=== PATIENT | male | born 1995 | race Caucasian/White ===

== ENCOUNTER 2020-12-16 18:05 | Emergency (ER) | payer OTHER, SELFPAY ==
--- NOTE | 2020-12-16 21:39 | ER ---
Nurse's Notes [facility] Name: Jerry Jamison Age: 25 yrs Sex: Male : 1995 Arrival Date: 12/16/2020 Time: 18:07 Bed 21 Private MD: Diagnosis: SARS-associated coronavirus as the cause of diseases classified elsewhere Presentation: 12/16 19:51 Acuity: MARCI 4 kg 19:54 Chief complaint: Patient states: Fever, cough x 1 day pt stated is exposed to covid. kg Chief complaint:. Coronavirus screen: Client denies travel out of the [place] in the last 14 days. At this time, unable to obtain information related to travel outside the [place] Ebola Screen: Patient negative for fever greater than or equal to 101.5 degrees Fahrenheit, and additional compatible Ebola Virus Disease symptoms Patient denies exposure to infectious person. Patient denies travel to an Ebola-affected area in the 21 days before illness onset. Initial Sepsis Screen: Does the patient meet any 2 criteria? No. Patient's initial sepsis screen is negative. Risk Assessment: Do you want to hurt yourself or someone else? Patient reports no desire to harm self or others. Onset of symptoms was December 15, 2020. 19:54 Method Of Arrival: Ambulatory kg 19:59 Initial Sepsis Screen: Does the patient meet any 2 criteria? No. Patient's initial kg sepsis screen is negative. Does the patient have a suspected source of infection? Yes: Productive cough/pneumonia. Triage Assessment: 19:57 General: Appears in no apparent distress. Behavior is calm, cooperative, appropriate kg for age, quiet. Pain: Denies pain. Historical: - Allergies: 19:57 No Known Allergies; kg - Home Meds: 19:57 None [Active]; kg - PMHx: 19:57 None; kg - PSHx: 19:57 Tonsillectomy; kg - Immunization history:: Adult Immunizations not up to date, Client reports having NOT received the Covid vaccine. - Social history:: Smoking status: Patient reports the use of cigarette tobacco products. Screenin:54 Abuse screen: Denies threats or abuse. Denies injuries from another. Nutritional kg screening: No deficits noted. 19:59 Tuberculosis screening: No symptoms or risk factors identified. Fall Risk None kg identified. Assessment: 21:31 General: Appears in no apparent distress. comfortable, Behavior is calm, cooperative, ca1 appropriate for age, Reports fever for > 3 days. Pain: Denies pain. Neuro: Level of Consciousness is awake, alert, obeys commands, Oriented to person, place, time, situation. Respiratory: Reports cough that is Airway is patent Respiratory effort is even, unlabored, Respiratory pattern is regular, symmetrical, Breath sounds are clear bilaterally. Derm: Skin is intact, is healthy with good turgor, Skin is pink, warm \T\ dry. Musculoskeletal: Circulation, motion, and sensation intact. Capillary refill < 3 seconds. Vital Signs: 19:54 BP 135 / 89; Pulse 93; Resp 17; Temp 97.8(TE); Pulse Ox 98% on R/A; Weight 158.76 kg kg (R); Height 5 ft. 10 in. (177.80 cm); Pain 0/10; 21:34 BP 126 / 76; Pulse 91; Resp 16 S; Pulse Ox 99% on R/A; ca1 19:54 Body Mass Index 50.22 (158.76 kg, 177.80 cm) kg ED Course: 18:07 Patient arrived in ED. as 19:54 Triage completed. kg 19:57 Arm band placed on. kg 19:58 Patient has correct armband on for positive identification. kg 21:24 Heriberto Ibanez PA is PHCP. jr8 21:24 Abelardo Washburn MD is Attending Physician. jr8 21:31 Shannon Gomez RN is Primary Nurse. ca1 21:31 No provider procedures requiring assistance completed. Patient did not have IV access ca1 during this emergency room visit. Administered Medications: No medications were administered Outcome: 21:38 Discharge ordered by . jr8 21:45 Discharged to home ambulatory. ca1 21:45 Condition: stable 21:45 Discharge instructions given to patient, Instructed on discharge instructions, follow up and referral plans. no drinking with medication, no driving heavy equipment, medication usage, Demonstrated understanding of instructions, follow-up care, medications, Prescriptions given X 1. 21:46 Patient left the ED. ca1 Signatures: Saray Ya Josh, PA PA jr8 Shannon Gomez RN RN ca1 Shae Caballero RN RN kg Corrections: (The following items were deleted from the chart) 19:57 19:51 Chief complaint: Patient states: Sneezing, coughing, and red eyes starting today kg 8/6 kg 19:57 19:51 Coronavirus screen: Client denies travel out of the [place] in the last 14 days. At kg this time, unable to obtain information related to travel outside the [place] Client presents with at least one sign or symptom that may indicate coronavirus-19. Standard/surgical mask placed on the client. Provider contacted for isolation considerations. kg 19:57 19:51 Ebola Screen: Patient negative for fever greater than or equal to 101.5 degrees kg Fahrenheit, and additional compatible Ebola Virus Disease symptoms Patient denies exposure to infectious person. Patient denies travel to an Ebola-affected area in the 21 days before illness onset. kg 19:57 19:51 Initial Sepsis Screen: Does the patient meet any 2 criteria? No. Patient's kg initial sepsis screen is negative. Does the patient have a suspected source of infection? No. Patient's initial sepsis screen is negative. kg 19:57 19:51 Risk Assessment: Do you want to hurt yourself or someone else? Patient reports no kg desire to harm self or others. kg 19:57 19:51 Onset of symptoms was December 16, 2020 kg kg 19:57 19:51 Method Of Arrival: Carried kg kg 19:57 19:51 Pulse 123bpm; Resp 29bpm; Spontaneous; Pulse Ox 100% RA; Temp 98.4F Axillary; kg 10.7 kg Measured; kg
--- NOTE | 2020-12-16 21:39 | EDPHYS ---
Physician Documentation [facility] Name: Jerry Jamison Age: 25 yrs Sex: Male : 1995 Arrival Date: 12/16/2020 Time: 18:07 Bed 21 Private MD: ED Physician Abelardo Washburn HPI: 12/16 21:36 This 25 yrs old Male presents to ER via Ambulatory with complaints of Fever, jr8 Cough, r/o covid. 21:36 The patient reports fever, not measured (subjective). Onset: The symptoms/episode jr8 began/occurred gradually. Modifying factors: there are no obvious modifying factors. Associated signs and symptoms: Pertinent positives: cough, decreased appetite, runny nose, sinus congestion. Severity of symptoms: At their worst the symptoms were mild in the emergency department the symptoms are unchanged. The patient has not experienced similar symptoms in the past. The patient has not recently seen a physician. Historical: - Allergies: 19:57 No Known Allergies; kg - Home Meds: 19:57 None [Active]; kg - PMHx: 19:57 None; kg - PSHx: 19:57 Tonsillectomy; kg - Immunization history:: Adult Immunizations not up to date, Client reports having NOT received the Covid vaccine. - Social history:: Smoking status: Patient reports the use of cigarette tobacco products. ROS: 21:36 Constitutional: Positive for body aches, chills, fever. jr8 21:36 ENT: Positive for rhinorrhea, sinus congestion. 21:36 Respiratory: Positive for cough, Negative for dyspnea on exertion, shortness of breath, sputum production, wheezing. 21:36 All other systems are negative. Exam: 21:36 Constitutional: This is a well developed, well nourished patient who is awake, alert, jr8 and in no acute distress. Eyes: Pupils equal round and reactive to light, extra-ocular motions intact. Lids and lashes normal. Conjunctiva and sclera are non-icteric and not injected. Cornea within normal limits. Periorbital areas with no swelling, redness, or edema. ENT: Nares patent. No nasal discharge, no septal abnormalities noted. Tympanic membranes are normal and external auditory canals are clear. Oropharynx with no redness, swelling, or masses, exudates, or evidence of obstruction, uvula midline. Mucous membranes moist. Neck: Trachea midline, no thyromegaly or masses palpated, and no cervical lymphadenopathy. Supple, full range of motion without nuchal rigidity, or vertebral point tenderness. No Meningismus. Cardiovascular: Regular rate and rhythm with a normal S1 and S2. No gallops, murmurs, or rubs. Normal PMI, no JVD. No pulse deficits. Respiratory: Lungs have equal breath sounds bilaterally, clear to auscultation and percussion. No rales, rhonchi or wheezes noted. No increased work of breathing, no retractions or nasal flaring. Abdomen/GI: Soft, non-tender, with normal bowel sounds. No distension or tympany. No guarding or rebound. No evidence of tenderness throughout. Back: No spinal tenderness. No costovertebral tenderness. Full range of motion. Skin: Warm, dry with normal turgor. Normal color with no rashes, no lesions, and no evidence of cellulitis. MS/ Extremity: Pulses equal, no cyanosis. Neurovascular intact. Full, normal range of motion. Neuro: Awake and alert, GCS 15, oriented to person, place, time, and situation. Cranial nerves II-XII grossly intact. Motor strength 5/5 in all extremities. Sensory grossly intact. Cerebellar exam normal. Normal gait. Vital Signs: 19:54 BP 135 / 89; Pulse 93; Resp 17; Temp 97.8(TE); Pulse Ox 98% on R/A; Weight 158.76 kg kg (R); Height 5 ft. 10 in. (177.80 cm); Pain 0/10; 21:34 BP 126 / 76; Pulse 91; Resp 16 S; Pulse Ox 99% on R/A; ca1 19:54 Body Mass Index 50.22 (158.76 kg, 177.80 cm) kg MDM: 21:24 Patient medically screened. 8 21:36 Data reviewed: vital signs, nurses notes, lab test result(s), and as a result, I will jr8 discharge patient. Data interpreted: Pulse oximetry: on room air is 99 %. Interpretation: normal. Counseling: I had a detailed discussion with the patient and/or guardian regarding: the historical points, exam findings, and any diagnostic results supporting the discharge/admit diagnosis, lab results, the need for outpatient follow up, a family practitioner, to return to the emergency department if symptoms worsen or persist or if there are any questions or concerns that arise at home. ED course: Discussed with patient that he is hemodynamically stable at this time with no increase in work of breathing and normal oxygen saturation. To watch for signs and symptoms of increased respiratory compromise. If he does experience this to come back for further evaluation. Otherwise we will start him on vitamin regimen and cough medicine. Needs to follow-up with PCP and 10 to 14 days. Patient with this plan at this time.. 12/16 21:21 Order name: SARS-COV-2 RT PCR; Complete Time: 21:24 EDMS Administered Medications: No medications were administered Disposition: 21:47 Co-signature as Attending Physician, Abelardo Washburn MD. pkl Disposition Summary: 12/16/20 21:38 Discharge Ordered Location: Home jr8 Problem: new jr8 Symptoms: have improved jr8 Condition: Stable jr8 Diagnosis - SARS-associated coronavirus as the cause of diseases classified elsewhere jr8 Followup: jr8 - With: Private Physician - When: 10 - 14 days - Reason: Recheck today's complaints, Continuance of care, Re-evaluation by your physician Discharge Instructions: - Discharge Summary Sheet jr8 - COVID-19 jr8 Forms: - Medication Reconciliation Form jr8 - Thank You Letter jr8 - Antibiotic Education jr8 - Prescription Opioid Use jr8 Prescriptions: - promethazine-DM 6.25-15 mg/5 mL Oral syrup - take 5 milliliter by ORAL route every 4-6 hours As needed as needed, not to jr8 exceed 30 mL in 24 hours; 100 milliliter; Refills: 0, Product Selection Permitted Signatures: Abelardo Washburn MD MD pkl Heriberto Ibanez PA PA jr8 Shae Caballero, RN RN kg
[2020-12-16 21:51] VITALS: TEMP 97.8
[2020-12-16 21:53] VITALS: BP 126/76; O2SAT 99
== END 2020-12-16 21:46 | disposition home or self-care (01) ==
LOC: ER 18:05
DX: U07.1 COVID-19 (principal); F17.210 Nicotine dependence, cigarettes, uncomplicated
CPT/HCPCS: 99282; U0003

== ENCOUNTER 2023-04-18 19:08 | Emergency (ER) | payer SELFPAY ==
--- NOTE | 2023-04-18 20:09 | ER ---
Nurse's Notes [facility] Name: Jerry Jamison Age: 27 yrs Sex: Male : 1995 Arrival Date: 04/18/2023 Time: 19:08 Bed IW1 Private MD: Diagnosis: Local infection of the skin and subcutaneous tissue, unspecified-behind right ear Presentation: 04/18 19:52 Chief complaint: Patient states: lump behind right ear with pain of 6,onset 2 days. pf1 Coronavirus screen: Vaccine status: Patient reports being unvaccinated. Client denies travel out of the [place] in the last 14 days. At this time, the client does not indicate any symptoms associated with coronavirus-19. Ebola Screen: Patient negative for fever greater than or equal to 101.5 degrees Fahrenheit, and additional compatible Ebola Virus Disease symptoms. Initial Sepsis Screen: Does the patient meet any 2 criteria? No. Patient's initial sepsis screen is negative. Does the patient have a suspected source of infection? No. Patient's initial sepsis screen is negative. Risk Assessment: Do you want to hurt yourself or someone else? Patient reports no desire to harm self or others. 19:52 Method Of Arrival: Ambulatory pf1 19:52 Acuity: MARCI 4 pf1 Historical: - Allergies: 19:55 No Known Allergies; pf1 - PMHx: 19:55 None; pf1 - PSHx: 19:55 Tonsillectomy; pf1 - Immunization history:: Adult Immunizations up to date, Client reports having NOT received the Covid vaccine. Last tetanus immunization: > 10 years ago. - Social history:: Smoking status: Reported history of juuling and/or vaping. Patient uses alcohol, but reports only rare drinking. Patient/guardian denies using street drugs. Screenin:30 [facility] ED Fall Risk Assessment (Adult) History of falling in the last 3 months, pf1 including since admission No falls in past 3 months (0 pts) Confusion or Disorientation No (0 pts) Intoxicated or Sedated No (0 pts) Impaired Gait No (0 pts) Mobility Assist Device Used No (0 pt) Altered Elimination No (0 pt) Score/Fall Risk Level 0 - 2 = Low Risk Oriented to surroundings, Maintained a safe environment, Educated pt \T\ family on fall prevention, incl call for assistance when getting out of bed, Assessed \T\ reinforced patient's understanding of fall precautions, Provided non-skid footwear, Hourly rounding (assess needs \T\ fall precautionary measures) done, Used ambulatory aids as needed (educated on \T\ assisted with), Used gait belt as appropriate. Abuse screen: Denies threats or abuse. Nutritional screening: No deficits noted. Tuberculosis screening: No symptoms or risk factors identified. Assessment: 20:30 General: Appears in no apparent distress. comfortable, well groomed, well developed, pf1 Behavior is calm, cooperative, appropriate for age, quiet. Pain: Complains of pain in behind right ear. Neuro: No deficits noted. Level of Consciousness is awake, alert, obeys commands, Oriented to person, place, time, situation. Cardiovascular: No deficits noted. Capillary refill < 3 seconds Patient's skin is warm and dry. Respiratory: No deficits noted. Airway is patent Respiratory effort is even, unlabored, Respiratory pattern is regular, symmetrical. GI: No deficits noted. No signs and/or symptoms were reported involving the gastrointestinal system. : No deficits noted. No signs and/or symptoms were reported regarding the genitourinary system. EENT: No deficits noted. No signs and/or symptoms were reported regarding the EENT system. Derm: patient C/O bump posterior right ear. Reports pain that is 6 out of 10 on a pain scale. behind right ear. Vital Signs: 19:52 BP 142 / 81; Pulse 73; Resp 16; Temp 97.1; Pulse Ox 100% on R/A; Weight 149.69 kg; pf1 Height 5 ft. 10 in. ; Pain 6/10; 19:52 Body Mass Index 47.35 (149.69 kg, 177.8 cm) pf1 19:52 Pain Scale: Adult pf1 ED Course: 19:14 Patient arrived in ED. gm2 19:26 Juan Brown PA is PHCP. cp 19:26 Shiv Núñez MD is Attending Physician. cp 19:52 Arm band placed on right wrist. pf1 19:55 Triage completed. pf1 20:30 Patient has correct armband on for positive identification. pf1 20:38 Provided Education on: prescriptions. pf1 20:38 No provider procedures requiring assistance completed. Patient did not have IV access pf1 during this emergency room visit. Administered Medications: No medications were administered Medication: 20:39 VIS not applicable for this client. pf1 Outcome: 20:08 Discharge ordered by . cp 20:38 Discharged to home ambulatory, with family, pf1 20:38 Condition: good 20:38 Discharge instructions given to patient, Instructed on discharge instructions, follow up and referral plans. Demonstrated understanding of instructions, follow-up care, medications, Prescriptions given X 2, 20:39 Patient left the ED. pf1 Signatures: Juan Brown PA PA cp Finley, Pamala RN RN pf1 Geena Alejo gm2 Corrections: (The following items were deleted from the chart) 20:05 19:52 Acuity: MARCI 3 pf1 pf1 20:37 20:30 Derm: patient C/O bump posterior right ear. Reports pain that is 5 out of 10 on a pf1 pain scale. behind right ear pf1
--- NOTE | 2023-04-18 20:09 | EDPHYS ---
Physician Documentation [facility] Name: Jerry Jamison Age: 27 yrs Sex: Male : 1995 Arrival Date: 04/18/2023 Time: 19:08 Bed IW1 Private MD: ED Physician Shiv Núñez HPI: 04/18 20:05 This 27 yrs old Male presents to ER via Ambulatory with complaints of Pain behind Rt cp ear. 20:05 Patient is a 27-year-old male who presents to the emergency department with complaints cp of pain and swelling behind right ear. Patient reports discomfort started a couple days ago and became worse this morning when he woke up. Patient denies any pain and/or drainage of the right ear. Historical: - Allergies: 19:55 No Known Allergies; pf1 - PMHx: 19:55 None; pf1 - PSHx: 19:55 Tonsillectomy; pf1 - Immunization history:: Adult Immunizations up to date, Client reports having NOT received the Covid vaccine. Last tetanus immunization: > 10 years ago. - Social history:: Smoking status: Reported history of juuling and/or vaping. Patient uses alcohol, but reports only rare drinking. Patient/guardian denies using street drugs. ROS: 20:05 All other systems are negative, cp Exam: 20:06 Constitutional: The patient appears in no acute distress, alert, awake, non-toxic, well cp developed, well nourished, obese, 20:06 Head/face: Noted is mild swelling, tenderness and erythema noted post auricular right cp ear. 20:06 ENT: External ear(s): are unremarkable, Ear canal(s): are normal, clear, TM's: dullness, bilaterally, Nose: is normal, Mouth: Lips: moist, Oral mucosa: pink and intact, moist, Posterior pharynx: Airway: no evidence of obstruction, patent, 20:06 Neck: ROM/movement: is normal, is supple, without pain, no range of motions limitations, 20:06 Chest/axilla: Inspection: normal, Vital Signs: 19:52 BP 142 / 81; Pulse 73; Resp 16; Temp 97.1; Pulse Ox 100% on R/A; Weight 149.69 kg; pf1 Height 5 ft. 10 in. ; Pain 6/10; 19:52 Body Mass Index 47.35 (149.69 kg, 177.8 cm) pf1 19:52 Pain Scale: Adult pf1 MDM: 20:08 Patient medically screened. cp 20:08 Differential diagnosis: abscess, cellulitis, mastoiditis, enlarged lymph node. cp 20:08 Data reviewed: vital signs, nurses notes, and as a result, I will discharge patient. cp Counseling: I had a detailed discussion with the patient and/or guardian regarding the historical points, exam findings, and any diagnostic results supporting the discharge/admit diagnosis, to return to the emergency department if symptoms worsen or persist or if there are any questions or concerns that arise at home. Administered Medications: No medications were administered Disposition Summary: 04/18/23 20:08 Discharge Ordered Notes: Location: Home cp Problem: new cp Symptoms: have improved cp Condition: Stable cp Diagnosis - Pain Behind Right Ear cp - Local infection of the skin and subcutaneous tissue, unspecified - behind right ear cp Followup: cp - With: Private Physician - When: 2 - 3 days - Reason: Worsening of condition Discharge Instructions: - Discharge Summary Sheet cp Forms: - Medication Reconciliation Form cp - Thank You Letter cp - Antibiotic Education cp - Prescription Opioid Use cp - Patient Portal Instructions cp - Leadership Thank You Letter cp Prescriptions: - Naprosyn 500 mg Oral tablet - take 1 tablet ORAL route 2 times per day take with food; 20 tablet; Refills: 0, cp Product Selection Permitted - Doxycycline Hyclate 100 mg Oral Tablet - take 1 tablet ORAL route every 12 hours; 20 tablet; Refills: 0, Product cp Selection Permitted Signatures: Juan Brown PA PA cp Finley, Pamala, RN RN pf1
[2023-04-18 20:50] VITALS: BP 142/81; TEMP 97.1; O2SAT 100
== END 2023-04-18 20:39 | disposition home or self-care (01) ==
LOC: ER 19:08
DX: R51.9 Headache, unspecified (principal); L08.9 Local infection of the skin and subcutaneous tissue, unspecified
CPT/HCPCS: 99283

== ENCOUNTER 2024-04-01 17:18 | Emergency (ER) | payer SELFPAY ==
[2024-04-01] MEDS ORDERED: IBUPROFEN 400 MG TAB ONE (18:24)
[2024-04-01] MEDS ORDERED: ONDANSETRON 4 MG (ODT) TAB ONE (18:25)
--- NOTE | 2024-04-01 18:34 | RAD REPORT ---
Procedure: Chest Pa And Lat (2 Views) HISTORY: Cough COMPARISON: none FINDINGS: The lungs appear clear of acute infiltrate. No significant pleural effusion noted. The heart is normal size. IMPRESSION: No acute abnormality is displayed.
[2024-04-01 19:04] LABS: SARS-CoV-2 Antigen CONTROL BLUE LINE VIS/BG OK; SARS-CoV-2 Antigen Rapid Res Negative (Negative)
--- NOTE | 2024-04-01 20:14 | EDPHYS ---
Physician Documentation [facility] Name: Jerry Jamison Age: 28 yrs Sex: Male : 1995 Arrival Date: 04/01/2024 Time: 17:18 Bed DX3 Private MD: ED Physician Tesfaye Rutledge HPI: 04/01 17:45 This 28 yrs old Male presents to ER via Ambulatory with complaints of Flu Symptoms. cp 17:45 The patient or guardian reports cough, that is intermittent, congestion. cp 17:45 Associated signs and symptoms: Pertinent positives: fever, nausea, sore throat, cp vomiting. Severity of symptoms: in the emergency department the symptoms are unchanged despite home interventions. Historical: - Allergies: 17:31 No Known Allergies; ko1 - Home Meds: 17:31 None [Active]; ko1 - PMHx: 17:31 None; ko1 - PSHx: 17:31 Tonsillectomy; ko1 - Immunization history:: Adult Immunizations unknown. - Infectious Disease History:: Denies. - Social history:: Smoking status: unknown. ROS: 17:50 Eyes: Negative for injury, pain, redness, and discharge, cp 17:50 Constitutional: Positive for body aches, fever, 17:50 ENT: Positive for sore throat, Negative for drainage from ear(s), ear pain, difficulty swallowing, difficulty handling secretions, 17:50 Cardiovascular: Negative for chest pain, edema, palpitations, 17:50 Respiratory: Positive for cough, with no reported sputum, Negative for shortness of breath, wheezing, 17:50 Abdomen/GI: Positive for nausea and vomiting, Negative for diarrhea, constipation, active vomiting, 17:50 Neuro: Negative for altered mental status, headache, 17:50 All other systems are negative, cp Exam: 17:55 Constitutional: The patient appears in no acute distress, alert, awake, cp non-diaphoretic, non-toxic, well developed, well nourished, obese, 17:55 Head/Face: Normocephalic, atraumatic. cp 17:55 Eyes: Periorbital structures: appear normal, Conjunctiva: normal, no exudate, no injection, Sclera: no appreciated abnormality, Lids and lashes: appear normal, bilaterally, 17:55 ENT: External ear(s): are unremarkable, Nose: is normal, Mouth: Lips: moist, Oral mucosa: moist, Posterior pharynx: Airway: no evidence of obstruction, patent, Tonsils: no enlargement, no exudate, swelling, is not appreciated, erythema, that is mild, exudate, is not appreciated, 17:55 Neck: ROM/movement: is normal, is supple, no meningismus, no nuchal rigidity, 17:55 Chest/axilla: Inspection: normal, 17:55 Cardiovascular: Rate: normal, Rhythm: regular, 17:55 Respiratory: the patient does not display signs of respiratory distress, Respirations: normal, no use of accessory muscles, no retractions, labored breathing, is not present, Breath sounds: decreased breath sounds, are not appreciated, stridor, is not appreciated, wheezing: is not appreciated, 17:55 Abdomen/GI: Inspection: obese Palpation: abdomen is soft and non-tender, in all quadrants, 17:55 Neuro: Orientation: to person, place \T\ time. Mentation: is normal, Motor: moves all fours, strength is normal, Vital Signs: 17:23 BP 149 / 101; Pulse 94; Resp 19; Temp 98.4; Pulse Ox 99% ; ko1 20:27 BP 141 / 94; Pulse 91; Resp 18 S; Temp 98.1(O); Pulse Ox 99% on R/A; lg3 MDM: 17:39 Medical Screening Exam initiated 20:13 Data reviewed: vital signs, nurses notes, lab test result(s), radiologic studies, plain cp films, and as a result, I will discharge patient. 20:13 I considered the following discharge prescriptions or medication management in the emergency department Medications were administered in the Emergency Department. See MAR. Counseling: I had a detailed discussion with the patient and/or guardian regarding the historical points, exam findings, and any diagnostic results supporting the discharge/admit diagnosis, lab results, radiology results, to return to the emergency department if symptoms worsen or persist or if there are any questions or concerns that arise at home. Response to treatment: the patient's symptoms have mildly improved after treatment, no vomiting observed while monitoring patient in ED, and as a result, I will discharge patient. 04/01 17:40 Order name: Influenza Screen (a \T\ B) 04/01 17:40 Order name: Strep 04/01 17:40 Order name: SARS RAPID cp 04/01 19:06 Order name: Throat Culture EDMS 04/01 17:40 Order name: XRAY Chest Pa And Lat (2 Views) cp Administered Medications: 18:29 Drug: Ondansetron PO 4 mg PO once Route: PO; ll1 20:29 Follow up: Response: No adverse reaction lg3 18:29 Drug: Ibuprofen PO 800 mg PO once Route: PO; ll1 20:29 Follow up: Response: No adverse reaction lg3 Disposition Summary: 04/01/24 20:14 Discharge Ordered Notes: Location: Home cp Problem: new cp Symptoms: have improved cp Condition: Stable cp Diagnosis - Cough cp - Acute pharyngitis, unspecified cp - Nausea with vomiting, unspecified cp Followup: cp - With: Private Physician - When: 2 - 3 days - Reason: Worsening of condition Discharge Instructions: - Discharge Summary Sheet cp - Nausea and Vomiting, Adult cp - Sore Throat cp - Cough, Adult cp Forms: - Work release form cp - Medication Reconciliation Form cp - Antibiotic Education cp - Prescription Opioid Use cp - Patient Portal Instructions cp - Leadership Thank You Letter cp Prescriptions: - Bromfed DM 2-30-10 mg/5 mL Oral syrup - administer 10 milliliter ORAL route 3-4 times daily; 240 milliliter; Refills: cp 0, Product Selection Permitted - Ibuprofen 800 mg Oral Tablet - take 1 tablet ORAL route every 8 hours As needed take with food; 30 tablet; cp Refills: 0, Product Selection Permitted - Zithromax Z-Carlos Alberto 250 mg Oral Tablet - take 1 tablet ORAL route as directed for 5 days Day 1 - take two (2) tablets cp one time. Day 2, 3, 4 , 5 take one (1) tablet once daily.; 6 tablet; Refills: 0, Product Selection Permitted - ondansetron 8 mg Oral Tablet,disintegrating - take 1 tablet ORAL route every 12 hours; 10 tablet; Refills: 0, Product cp Selection Permitted Addendum: 04/07/2024 17:20 Co-signature as Attending Physician, Tesfaye Rutledge MD I reviewed the patient's care r n provided by the Advanced Practice Provider and agree with the diagnosis and treatment plan. Signatures: Dispatcher [employer] Tesfaye Alvarado MD MD rn Page, Corey, PA PA cp Dilan Farris RN RN ll1 Consuelo Tomas RN RN ko1 AbleCatina RN lg3 Corrections: (The following items were deleted from the chart) 04/02 19:14 19:11 Constitutional: Positive for body aches, fever, cp cp 19:14 19:11 Abdomen/GI: Positive for nausea and vomiting, Negative for diarrhea, cp constipation, active vomiting, cp 19:14 19:11 Respiratory: Positive for cough, with no reported sputum, Negative for shortness cp of breath, wheezing, cp 19:14 19:11 Eyes: Negative for injury, pain, redness, and discharge, cp cp 19:14 19:11 ENT: Positive for sore throat, Negative for drainage from ear(s), ear pain, cp difficulty swallowing, difficulty handling secretions, cp 19:14 19:11 Neuro: Negative for altered mental status, headache, cp cp 19:14 19:11 Cardiovascular: Negative for chest pain, edema, palpitations, cp cp
--- NOTE | 2024-04-01 20:14 | ER ---
Nurse's Notes [facility] Name: Jerry Jamison Age: 28 yrs Sex: Male : 1995 Arrival Date: 04/01/2024 Time: 17:18 Bed DX3 Private MD: Diagnosis: Cough;Acute pharyngitis, unspecified;Nausea with vomiting, unspecified Presentation: 04/01 17:23 Chief complaint: Patient states: day 4 of fever, flu symptoms. Coronavirus screen: ko1 congestion, cough unrelated to allergies, fatigue, fever, muscle pain, nausea, sore throat, vomiting. Ebola Screen: No symptoms or risks identified at this time. Initial Sepsis Screen: Does the patient meet any 2 criteria? No. Patient's initial sepsis screen is negative. Does the patient have a suspected source of infection? No. Patient's initial sepsis screen is negative. Risk Assessment: Do you want to hurt yourself or someone else? Patient reports no desire to harm self or others. Onset of symptoms is unknown. 17:23 Method Of Arrival: Ambulatory ko1 17:23 Acuity: MARCI 4 ko1 Triage Assessment: 17:31 General: Appears in no apparent distress. Behavior is calm, cooperative, appropriate ko1 for age. Pain: Complains of pain in all over. Historical: - Allergies: 17:31 No Known Allergies; ko1 - Home Meds: 17:31 None [Active]; ko1 - PMHx: 17:31 None; ko1 - PSHx: 17:31 Tonsillectomy; ko1 - Immunization history:: Adult Immunizations unknown. - Infectious Disease History:: Denies. - Social history:: Smoking status: unknown. Screenin:27 [facility] ED Fall Risk Assessment (Adult) History of falling in the last 3 months, lg3 including since admission No falls in past 3 months (0 pts) Confusion or Disorientation No (0 pts) Intoxicated or Sedated No (0 pts) Impaired Gait No (0 pts) Mobility Assist Device Used No (0 pt) Altered Elimination No (0 pt) Score/Fall Risk Level 0 - 2 = Low Risk Oriented to surroundings, Maintained a safe environment, Educated pt \T\ family on fall prevention, incl call for assistance when getting out of bed, Assessed \T\ reinforced patient's understanding of fall precautions. Abuse screen: Denies threats or abuse. Denies injuries from another. Nutritional screening: No deficits noted. Tuberculosis screening: No symptoms or risk factors identified. Assessment: 20:27 General: Appears in no apparent distress. comfortable, Behavior is calm, cooperative. lg3 Pain: Complains of pain in generalized body aches. Neuro: No deficits noted. Zavala Agitation-Sedation Scale (RASS): 0 - Alert and Calm Level of Consciousness is awake, alert, obeys commands, Oriented to person, place, time, situation. Cardiovascular: No deficits noted. Denies chest pain, shortness of breath, Capillary refill < 3 seconds Clubbing of nail beds is absent JVD is absent Patient's skin is warm and dry. Respiratory: No deficits noted. Reports cough that is Airway is patent Respiratory effort is even, unlabored, Respiratory pattern is regular, symmetrical. GI: No deficits noted. Abdomen is round non-distended, obese, Reports diarrhea, nausea, vomiting. : No deficits noted. No signs and/or symptoms were reported regarding the genitourinary system. EENT: No signs and/or symptoms were reported regarding the EENT system. Reports nasal congestion nasal discharge. Derm: No deficits noted. No signs and/or symptoms reported regarding the dermatologic system. Skin is intact, is healthy with good turgor, Skin is dry, Skin is normal, Skin temperature is warm. Musculoskeletal: No deficits noted. Circulation, motion, and sensation intact. Range of motion: intact in all extremities. Vital Signs: 17:23 BP 149 / 101; Pulse 94; Resp 19; Temp 98.4; Pulse Ox 99% ; ko1 20:27 BP 141 / 94; Pulse 91; Resp 18 S; Temp 98.1(O); Pulse Ox 99% on R/A; lg3 ED Course: 17:22 Patient arrived in ED. im 17:25 Juan Brown PA is PHCP. cp 17:25 Tesfyae Rutledge MD is Attending Physician. cp 17:31 Triage completed. ko1 17:31 Arm band placed on right wrist. Patient placed in waiting room, Patient notified of ko1 wait time. 18:26 XRAY Chest Pa And Lat (2 Views) In Process Unspecified. EDMS 18:38 Influenza Screen (a \T\ B) Sent. ll1 18:38 Strep Sent. ll1 18:38 SARS RAPID Sent. ll1 20:27 Patient has correct armband on for positive identification. Family accompanied patient. lg3 20:27 No provider procedures requiring assistance completed. Patient did not have IV access lg3 during this emergency room visit. Administered Medications: 18:29 Drug: Ondansetron PO 4 mg PO once Route: PO; ll1 20:29 Follow up: Response: No adverse reaction lg3 18:29 Drug: Ibuprofen PO 800 mg PO once Route: PO; ll1 20:29 Follow up: Response: No adverse reaction lg3 Medication: 20:27 VIS not applicable for this client. lg3 Outcome: 20:14 Discharge ordered by MD. cp 20:27 Discharged to home ambulatory, lg3 20:27 Condition: stable 20:27 Discharge instructions given to patient, Instructed on discharge instructions, follow up and referral plans. medication usage, Demonstrated understanding of instructions, follow-up care, medications, Prescriptions given X 4, 20:29 Patient left the ED. lg3 Signatures: Dispatcher [employer] EDMS Juan Brown PA PA cp Able, Lacie, RN RN lg3 Dilan Farris RN RN ll1 Consuelo Tomas RN RN ko1 Yanira Oscar
[2024-04-01 20:34] VITALS: O2SAT 99
[2024-04-01 20:36] VITALS: BP 141/94; TEMP 98.1
== END 2024-04-01 20:29 | disposition home or self-care (01) ==
LOC: ER 17:18
DX: R05.9 Cough, unspecified (principal); J02.9 Acute pharyngitis, unspecified; R11.2 Nausea with vomiting, unspecified; Z11.52 Encounter for screening for COVID-19
CPT/HCPCS: 36415; 71046; 87070; 87081; 87804; 87811; 99284; Q0162